=== PATIENT | female | born 1965 | race American Indian/Alaskan Native ===

== ENCOUNTER 2017-11-22 06:32 | Day surgery (SDC) | payer OTHER ==
[~2017-11-22 06:32] MED LIST: CLEOCIN 900 MG/50 mL 900 MG/50 ML BAG IV NR
[2017-11-22] MEDS ORDERED: ADRENALIN IV ONE ×2 (08:05→09:39)
[2017-11-22] MEDS ORDERED: NACL 0.9% 1000 ML 1,000 ML ONE (08:21)
--- NOTE | 2017-11-22 08:25 | Anesthesia Day of Surgery ---
Anesthesia Day of Surgery - Day of Surgery Patient Examined: Yes Patient H&P Reviewed: Yes Patient is NPO: Yes
--- NOTE | 2017-11-22 08:25 | Anesthesia Consultation ---
Anesthesia Consult and Med Hx Date of service: 11/22/17 - Airway Anesthetic Teeth Evaluation: Good ROM Head & Neck: Adequate Mental/Hyoid Distance: Adequate Mallampati Class: Class I Intubation Access Assessment: Good - Pulmonary Exam CTA: Yes - Cardiac Exam Cardiac Exam: RRR - Pre-Operative Health Status ASA Pre-Surgery Classification: ASA2 Proposed Anesthetic Plan: General Nerve Block: IS - Pulmonary Hx Smoking: No Hx Sleep Apnea: No (IVAN PRE SCREEN NEGATIVE) - Cardiovascular System Hx Hypertension: No - Central Nervous System Hx Back Pain: Yes - Other Systems Hx Cancer: No - Additional Comments Anesthesia Medical History Comments: arthritis. Informed consent obtained
[2017-11-22] MEDS ORDERED: XYLOCAINE 1% 20 mL ONE (08:27)
[2017-11-22] MEDS ORDERED: MARCAINE 0.5% 30 ML INFILTRATI ONE (08:27)
[2017-11-22] MEDS ORDERED: DECADRON ONE (08:27)
[2017-11-22] MEDS ORDERED: NACL 0.9% 1000 ML 1,000 ML IV SCH (09:00)
[2017-11-22] MEDS ORDERED: PEPCID IV NR (09:00)
[2017-11-22] MEDS ORDERED: PERCOCET 5/325 PO PRN (09:00)
[2017-11-22] MEDS ORDERED: SUBLIMAZE IV NR (09:00)
[2017-11-22] MEDS ORDERED: VERSED IV NR (09:00)
[2017-11-22] MEDS ORDERED: DILAUDID IV PRN (09:00)
[2017-11-22] MEDS ORDERED: ZEMURON IV ONE (09:30)
[2017-11-22] MEDS ORDERED: XYLOCAINE MPF 2% ONE (09:30)
[2017-11-22] MEDS ORDERED: DIPRIVAN 10 MG/ML IV ONE (09:30)
[2017-11-22] MEDS ORDERED: SUBLIMAZE ONE (09:33)
[2017-11-22] MEDS ORDERED: NACL 0.9% IR ONE ×2 (09:39)
[2017-11-22] MEDS ORDERED: NEO SYNEPHRINE/NS Syringe(OR USE) IV ONE (10:29)
[2017-11-22] MEDS ORDERED: ZOFRAN ONE (10:31)
--- NOTE | 2017-11-22 11:16 | Short Stay Summary ---
Short Stay Documentation Date of service: 11/22/17 - History H&P: obtained from office - Allergies and Medications Current Medications: Allergies amoxicillin Allergy (Verified 11/09/17 10:58) Rash clarithromycin [From [facility]] Allergy (Verified 11/22/17 09:01) Rash doxycycline Allergy (Verified 11/22/17 09:01) Rash lansoprazole [From [facility]] Allergy (Verified 11/22/17 09:01) Rash latex Allergy (Verified 11/09/17 10:58) Rash Home Medications Medication Instructions Recorded Confirmed Last Taken Type Ibuprofen [Motrin] 800 mg PO Q8HR PRN 11/09/17 11/09/17 Unknown History Multivit-Min/FA/Lycopen/Lutein 1 each PO DAILY 11/09/17 11/09/17 Unknown History [Centrum Silver Tablet] Active Medications Famotidine (Pepcid) 20 mg IV PREOP NR Stop: 11/22/17 21:00 Last Admin: 11/22/17 08:48 Dose: 20 mg Fentanyl (Sublimaze) 100 mcg IV ONCE NR Stop: 11/22/17 21:00 Last Admin: 11/22/17 08:30 Dose: 50 mcg Hydromorphone HCl (Dilaudid) 0.5 mg IV Q10MIN PRN PRN Reason: Pain , Severe (7-10) Stop: 11/22/17 20:00 Clindamycin HCl (Cleocin 900 Mg/50 Ml) 900 mg in 50 mls @ 100 mls/hr IV PREOP NR PRN Reason: Protocol Stop: 11/22/17 21:00 Sodium Chloride (Nacl 0.9% 1000 Ml) 1,000 mls @ 100 mls/hr IV DIRECT BILL Last Admin: 11/22/17 08:20 Dose: 100 mls/hr Midazolam HCl (Versed) 2 mg IV PREOP NR Stop: 11/22/17 23:59 Last Admin: 11/22/17 08:30 Dose: 1 mg Oxycodone/Acetaminophen (Percocet 5/325) 1 tab PO ONCE PRN PRN Reason: Pain, Moderate (4-6) - Brief post op/procedure progress note Date of procedure: 11/22/17 Pre-op diagnosis: persistent right shoulder pain, large type II causing impingement Post-op diagnosis: other (persistent right shoulder pain, type II acromion causing impingement, subacromial bursitis, severe adhesions of the subascapularis, prior biceps tenotomy,extensive subacromial bursitis) Procedure: right shoulder arthroscopy, subacromial decompression, debriedment of extensive subacromial bursitis, debriedment of extensive intraarticular adhesions Anesthesia: GETA Findings: as above Surgeon: SOURAV NELSON Steel Plate Printer: ZULEYMA ALEXANDRE III Estimated blood loss: minimal Pathology: none Condition: stable - Hospital course Hospital course: no perioperative complications - Disposition Condition at discharge: Good Disposition: DC-01 TO HOME OR SELFCARE Short Stay Discharge Plan Follow up with: JOAQUIN SHELTON MD [Primary Care Provider] - 7 Days
[2017-11-22] MEDS ORDERED: ROBINUL ONE (11:26)
[2017-11-22] MEDS ORDERED: NEOSTIGMINE ONE (11:26)
[2017-11-22] MEDS ORDERED: DEMEROL ONE (11:46)
[2017-11-22] MEDS ORDERED: DEMEROL IV PRN (11:52)
--- NOTE | 2017-11-22 12:22 | Operative Report ---
PREOPERATIVE DIAGNOSES: Persistent right shoulder pain, acromioclavicular joint arthritis, partial thickness rotator cuff tear. POSTOPERATIVE DIAGNOSES: Persistent right shoulder pain, type 2 acromion causing severe impingement upon the rotator cuff, prior distal clavicle excision, prior biceps tenotomy, severe adhesions located diffusely throughout the intraarticular aspect of the glenohumeral joint, particularly anteriorly surrounding the subscapularis tendon, extensive subacromial bursitis, partial thickness bursal sided rotator cuff tear due to the impingement caused by the undersurface of the acromion. OPERATIVE PROCEDURE: Right shoulder arthroscopy, subacromial decompression, debridement of extensive subacromial bursitis, lysis of multiple adhesions located diffusely throughout the anterior aspect of the glenohumeral joint, specifically surrounding the subscapularis tendon, debridement of partial thickness bursal sided rotator cuff tear. SURGEON: Gal Doyle M.D. RADAR OPERATOR: Shar Weller III, M.D. ANESTHESIA: General plus an interscalene block to the operative right upper extremity. DEEP VENOUS THROMBOSIS PROPHYLAXIS: Open toe thigh high compression stockings and SCD pumps to bilateral lower extremities. PREOPERATIVE ANTIBIOTICS: Clindamycin 900 mg IV within 1 hour of skin incision. OPERATIVE COMPLICATIONS: None. OPERATIVE HISTORY AND PHYSICAL: This is a 51-year-old female who has had persistent progressively worsening right shoulder pain. The pain limits her day-to-day activities and has failed to improve despite extensive nonoperative treatment. The patient has had 2 prior right shoulder surgeries. MRI scan was performed, which was positive for persistent inferior spur of the acromion as well as partial thickness rotator cuff tear. The patient's MRI findings and diagnosis were discussed at length. After making sure the patient understood that diagnosis and all of her questions were answered, we then discussed treatment alternatives of surgical and nonsurgical including risks and benefits of both. After a long lengthy discussion, the patient opted to proceed with operative intervention. This will entail a right shoulder arthroscopy, subacromial decompression, distal clavicle excision, possible rotator cuff repair and surgery as indicated, the risk of which were discussed to include but not exclusive of infection, blood loss, nerve damage, loss of range of motion and persistent pain. Again, the patient understood, all her questions were answered. She wished to proceed with operative intervention. OPERATIVE PROCEDURE: The patient was seen in the preoperative holding room area, at which point informed consent was reviewed and appropriate right upper extremity was identified and then marked. The patient was then brought back to the operating room and placed supine on a standard operative table with the beach chair positioner already in place. General anesthesia was then administered and an endotracheal tube was inserted. After confirmation of adequate general anesthesia and checking appropriate placement of the endotracheal tube, we then made sure that all bony prominences were well padded. We made sure there were no wrinkles in the compression stockings on bilateral lower extremities, and SCD pumps were applied to bilateral lower extremities. The patient was then sat up in the beach chair position using the beach chair positioner, which was already in place and hip was secured in nice neutral position. The well left arm was secured in neutral position at the patient's side with the aid of the well arm yanez. The right upper extremity was then examined under anesthesia. The patient was seen to have full range of motion with no gross evidence of instability except for slight lack of external rotation compared to the opposite extremity. I found there was no evidence of instability. Following examination under anesthesia, the right upper extremity was then prepped and draped in the usual sterile fashion. After prepping and draping, a timeout was called and appropriate right upper extremity was identified which again had been marked in preop holding area. We began the procedure by first making standard posterior portal with #15 blade. Once the portal was established, a cannula with a blunt trocar was inserted in the intra-articular aspect of the glenohumeral joint. This went without difficulty or damage to articular cartilage. Once in place, arthroscopic camera immediately placed in the anterior aspect of the shoulder joint, we established anterior portal by first inserting 18 inch spinal needle under direct arthroscopic visualization. Once confirmed to be superior to the subscapularis tendon, a 15 blade was then used to establish the anterior portal. Once the portal was established, a cannula with a blunt trocar was inserted into the intra-articular aspect of the glenohumeral joint. This went without difficulty or damage to articular cartilage. Once in place, the arthroscopic probe was inserted and the anterior portal, began our diagnostic arthroscopy on the anterior aspect of the shoulder joint. The patient was seen to have severe adhesions located diffusely throughout the anterior aspect of the glenohumeral joint. These adhesions almost completely encased the subscapularis tendon and caused it to be markedly superiorly oriented in its normal orientation. These adhesions were meticulously taken down and hemostasis was achieved with the Arthrocare ablation wand. The patient had a prior biceps tenotomy. There was a normal anterior, superior, posterior labrum, which when probed was stable. There was mild grade 1 articular cartilage loss of the glenohumeral joint. There was a normal bare area without any Hill-Sachs lesions. There were no loose bodies in the axillary recess. The articular side of the rotator cuff showed it to be intact and stable when probed. Arthroscopic pump was turned off to make sure there was good hemostasis. Once this was confirmed, the extraneous fluid was suctioned from the glenohumeral joint. Following this, all arthroscopic instrumentation was removed from glenohumeral joint and placed in the subacromial space. Once in the subacromial space, we saw there was severe extensive subacromial bursitis. A third incision made in the lateral aspect of the shoulder and left distal clavicle away from axillary nerve. Once this incision was made, the blunt trocar was inserted via the portal site. We debrided the extensive subacromial bursitis using the arthroscope shaver and hemostasis was achieved with the Arthrocare ablation wand. Once completed, the arm was placed through range of motion. We saw there is severe impingement of the rotator cuff on the undersurface of the acromion. The soft tissue was removed from the surface acromion using Arthrocare ablation wand and using the 4.0 hooded barrel bur, we carried out subacromial decompression in standard fashion from inferior and superior, posterior and anterior to make sure not to leave any residual anterior hook. Once completed, the arm was again placed through full range of motion, so there was no further impingement of the rotator cuff on undersurface of the acromion or the distal clavicle. The patient had a prior distal clavicle excision to a depth of well over 8 mm. Inspection of the bursal side of the rotator cuff showed it to be a partial thickness tear directly related to the area of impingement from the undersurface of the acromion. This tear was gently debrided using 4.0 meniscal shaver. Hemostasis again was achieved with the Arthrocare ablation wand. Once completed, the arthroscopic pump turned off to make sure there was good hemostasis. Once this was confirmed, trace fluid was suctioned from the subacromial space using arthroscopic cannula. Following this, all the arthroscopic instrumentation was removed. The 3 portal sites were closed with 3-0 nylon in simple fashion. Adaptic, 4 x 4s, ABD, paper tape, small abduction sling was applied. The patient was then sat down from beach chair into the supine position, and was awakened from general anesthesia without complications and taken to recovery room in stable condition, and standard postoperative orders were written. JOB# [id number] MARINA/MARLENE
[2017-11-22 12:49] VITALS: BP 128/79
--- NOTE | 2017-11-22 14:10 | Post Anesthesia Evaluation ---
- Post Anesthesia Evaluation Patient Participated: Yes Airway Patent: Yes Stable Respiratory Function: Yes Nausea/Vomiting: No Temp > 96.8F: Yes Pain Manageable: Yes Adequeate Hydration: Yes Anesthesia Complications: No Other Comments: IS block for analgesia
== END 2017-11-22 13:36 | disposition home or self-care (01) ==
LOC: OR 06:32
PROVIDERS: ATTEND Orthopaedic Surgery
DX: S46.011A Strain of muscle(s) and tendon(s) of the rotator cuff of right shoulder, initial encounter (principal); M75.41 Impingement syndrome of right shoulder; M19.011 Primary osteoarthritis, right shoulder; M75.01 Adhesive capsulitis of right shoulder; Z88.1 Allergy status to other antibiotic agents; Z91.040 Latex allergy status; X58.XXXA Exposure to other specified factors, initial encounter; Y93.89 Activity, other specified; Y92.89 Other specified places as the place of occurrence of the external cause; Y99.8 Other external cause status
CPT/HCPCS: A4217; J0171; J1100; J2175; J2250; J2370; J2405; J2704; J2710; J3010; J7030; L1830

== ENCOUNTER 2018-05-23 06:06 | Day surgery (SDC) | payer OTHER ==
[2018-05-20 09:47] LABS: Basophils % (Auto) 0.6 % (0.0-1.8); Eosinophils # (Auto) 0.1 K/mm3 (0.0-0.4); Eosinophils % (Auto) 1.7 % (0.0-4.3); Hemoglobin 13.3 gm/dl (10.1-14.3); Monocytes # (Auto) 0.3 K/mm3 (0.0-0.8); Monocytes % (Auto) 8.1 % (0.0-7.3)
--- NOTE | 2018-05-20 10:07 | Anesthesia Consultation ---
Anesthesia Consult and Med Hx Date of service: 05/20/18 - Airway Anesthetic Teeth Evaluation: Good ROM Head & Neck: Adequate Mental/Hyoid Distance: Adequate Mallampati Class: Class II Intubation Access Assessment: Probably Good - Pre-Operative Health Status ASA Pre-Surgery Classification: ASA2 Proposed Anesthetic Plan: General Nerve Block: IS - Pulmonary Hx Smoking: No Hx Sleep Apnea: No (IVAN PRE SCREEN NEGATIVE) - Cardiovascular System Hx Hypertension: No - Central Nervous System Hx Back Pain: Yes (left shoulder pain) - Other Systems Hx Cancer: No
[2018-05-20 10:12] LABS: Hematocrit 38.9 % (30.3-42.9); Lymphocytes # (Auto) 1.8 K/mm3 (1.2-5.4); Lymphocytes % (Auto) 42.1 % (13.4-35.0); Mean Corpuscular HGB Conc 34 % (30-34); Mean Corpuscular Hemoglobin 30 pg (28-32); Mean Corpuscular Volume 88 fl (79-97); Platelet Count 108 K/mm3 (140-440); Red Cell Distribution Width 13.6 % (13.2-15.2)
[2018-05-20 10:28] LABS: Alanine Aminotransferase 13 units/L (7-56); Albumin 3.9 g/dL (3.9-5); BUN/Creatinine Ratio 15; Blood Urea Nitrogen 12 mg/dL (7-17); Hemolysis Index 23
[~2018-05-23 06:06] MED LIST changes: -CLEOCIN 900 MG/50 mL 900 MG/50 ML BAG IV NR; +CLEOCIN 900 MG/50 mL 900 MG/50 ML BAG IV SCH
[2018-05-23] MEDS ORDERED: NACL BACTERIOSTATIC INFILTRATI ONE (06:32)
[2018-05-23] MEDS ORDERED: ADRENALIN IV ONE ×2 (06:37→08:35)
[2018-05-23] MEDS ORDERED: MARCAINE 0.5% INFILTRATI NR (06:59)
[2018-05-23] MEDS ORDERED: LACTATED RINGERS 1,000 ML IV SCH (07:00)
[2018-05-23] MEDS ORDERED: BENADRYL PO NR (07:00)
[2018-05-23] MEDS ORDERED: VERSED IV NR (07:00)
[2018-05-23] MEDS ORDERED: PEPCID IV NR (07:00)
[2018-05-23] MEDS ORDERED: DILAUDID ONE (07:10)
[2018-05-23] MEDS ORDERED: XYLOCAINE MPF 2% ONE (07:10)
[2018-05-23] MEDS ORDERED: DIPRIVAN 10 MG/ML IV ONE (07:10)
[2018-05-23] MEDS ORDERED: ZEMURON IV ONE (07:10)
--- NOTE | 2018-05-23 07:12 | Anesthesia Day of Surgery ---
Anesthesia Day of Surgery - Day of Surgery Patient Examined: Yes Patient H&P Reviewed: Yes Patient is NPO: Yes
[2018-05-23] MEDS ORDERED: XYLOCAINE 1% MPF 5 mL INFILTRATI NR (07:13)
[2018-05-23] MEDS ORDERED: ZOFRAN IV PRN (07:20)
[2018-05-23] MEDS ORDERED: DILAUDID IV PRN (07:20)
[2018-05-23] MEDS ORDERED: BLOXIVERZ ONE (07:30)
[2018-05-23] MEDS ORDERED: ROBINUL ONE (07:30)
[2018-05-23] MEDS ORDERED: DECADRON ONE (07:30)
[2018-05-23] MEDS ORDERED: ZOFRAN ONE (07:30)
[2018-05-23] MEDS ORDERED: NEURONTIN PO NR (08:00)
[2018-05-23] MEDS ORDERED: NACL 0.9% IR ONE ×2 (08:35)
--- NOTE | 2018-05-23 09:54 | Short Stay Summary ---
Short Stay Documentation Date of service: 05/23/18 - History H&P: obtained from office - Allergies and Medications Current Medications: Allergies amoxicillin Allergy (Verified 11/09/17 10:58) Rash clarithromycin [From [facility]] Allergy (Verified 11/22/17 09:01) Rash doxycycline Allergy (Verified 11/22/17 09:01) Rash lansoprazole [From [facility]] Allergy (Verified 11/22/17 09:01) Rash latex Allergy (Verified 11/09/17 10:58) Rash Home Medications Medication Instructions Recorded Confirmed Last Taken Type No Known Home Medications [No 05/23/18 05/23/18 Unknown History Reported Home Medications] Active Medications Celecoxib (Celebrex) 200 mg PO PREOP NR Stop: 05/23/18 13:00 Diphenhydramine HCl (Benadryl) 50 mg PO ONCE NR Stop: 05/23/18 23:59 Last Admin: 05/23/18 07:00 Dose: 50 mg Famotidine (Pepcid) 20 mg IV PREOP NR Stop: 05/23/18 23:59 Last Admin: 05/23/18 07:05 Dose: 20 mg Gabapentin (Neurontin) 300 mg PO PREOP NR Stop: 05/23/18 12:00 Hydromorphone HCl (Dilaudid) 0.5 mg IV Q10MIN PRN PRN Reason: Pain , Severe (7-10) Stop: 05/23/18 12:00 Clindamycin HCl (Cleocin 900 Mg/50 Ml) 900 mg in 50 mls @ 100 mls/hr IV PREOP BILL; Protocol Stop: 05/23/18 23:59 Lactated Ringer's (Lactated Ringers) 1,000 mls @ 100 mls/hr IV DIRECT BILL Last Admin: 05/23/18 07:00 Dose: 100 mls/hr Lidocaine (Xylocaine 1% Mpf 5 Ml) 5 ml INFILTRATI ONCE NR Stop: 05/23/18 12:00 Midazolam HCl (Versed) 2 mg IV PREOP NR Stop: 05/23/18 23:59 Last Admin: 05/23/18 07:15 Dose: 2 mg Ondansetron HCl (Zofran) 4 mg IV ONCE PRN PRN Reason: Nausea And Vomiting Stop: 05/23/18 12:00 - Brief post op/procedure progress note Date of procedure: 05/23/18 Pre-op diagnosis: left shoulder pain, AC joint arthritis, partial rotator cuff tear Post-op diagnosis: other (persistent left shoulder pain, acromioclavicular joint arthritis, partial rotator cuff tear, extensive subacromial bursitis, degenerative wear of the anterior labrum) Procedure: left shoulder arthroscopy subacromial decompression, distal clavicle excision, debridement of extensive subacromial bursitis, debridement of partial rotator cuff tear, debridement of degenerative wear of the anterior labrum Anesthesia: GETA Findings: as above Surgeon: SOURAV NELSON Estimated blood loss: minimal Pathology: none Condition: stable - Hospital course Hospital course: no perioperative complications - Disposition Condition at discharge: Good Disposition: DC-01 TO HOME OR SELFCARE Short Stay Discharge Plan Follow up with: PRIMARY CARE, [Primary Care Provider] - 7 Days
--- NOTE | 2018-05-23 11:20 | Post Anesthesia Evaluation ---
- Post Anesthesia Evaluation Patient Participated: Yes Airway Patent: Yes Stable Respiratory Function: Yes Nausea/Vomiting: No Temp > 96.8F: Yes Pain Manageable: Yes Adequeate Hydration: Yes Anesthesia Complications: No Block Receding Appropriately: Yes (Postoperative block instructions discussed.) Patient on Ventilator: No
--- NOTE | 2018-05-23 11:35 | Operative Report ---
PREOPERATIVE DIAGNOSES: Persistent left shoulder pain, acromioclavicular joint arthritic changes with inferior spurs causing severe impingement upon the rotator cuff, partial thickness rotator cuff tear. POSTOPERATIVE DIAGNOSES: Persistent left shoulder pain, advanced acromioclavicular joint arthritic changes with inferior spurs causing severe impingement upon the rotator cuff, partial thickness bursal-sided rotator cuff tear involving the supraspinatus tendon accomplishing approximately 30% of the width of the tendon in a linear-type fashion, clearly from the inferior spur of the acromion, degenerative wear of the anterior labrum, extensive subacromial bursitis. OPERATIVE PROCEDURE: Left shoulder arthroscopy, subacromial decompression, distal clavicle excision, debridement of extensive subacromial bursitis, debridement of partial thickness rotator cuff tear, debridement of degenerative wear of the anterior labrum. SURGEON: Gal Doyle M.D. ITALIAN TEACHER: None. ANESTHESIA: General plus interscalene block to the operative left upper extremity. PREOPERATIVE ANTIBIOTICS: Clindamycin 900 mg IV within 1 hour of skin incision. DVT PROPHYLAXIS: Open toe, thigh compression stockings and SCD pumps to bilateral lower extremities. OPERATIVE COMPLICATIONS: None. OPERATIVE HISTORY AND PHYSICAL: This is a 52-year-old female who has had persistent progressive worsening left shoulder pain with a loss of range of motion, which was failed to improve despite extensive nonoperative treatment. The patient has marked limitation of her daily activities. An MRI scan was performed which was positive for rotator cuff stenosis with a partial thickness tear. The patient's MRI findings and diagnosis were discussed at length. After making sure the patient understood that diagnosis, all questions answered, we then discussed treatment alternatives of surgical and nonsurgical including risks and benefits of both. After a long lengthy discussion, the patient opted to proceed with operative intervention. At this point, a left shoulder arthroscopy, subacromial decompression, distal clavicle excision, possible rotator cuff repair and surgery is indicated. The risks of which were discussed to include but not exclusive of infection, blood loss, nerve damage, loss of range of motion and persistent pain. Again, the patient understood, all of her questions answered. She wished to proceed with operative intervention for operative procedure. DESCRIPTION OF PROCEDURE: The patient was seen in the preoperative holding room area, at which point informed consent was reviewed and the appropriate left upper extremity was identified and then marked. The patient was then evaluated by Anesthesia and interscalene block was performed. After confirmation of adequate analgesia of the left upper extremity, the patient was then brought back to the operating room and placed supine on standard operating room table with the beach chair position already in place. At this juncture, general anesthesia was administered and an endotracheal tube was inserted. After confirmation of appropriate general anesthesia and checking appropriate placement of the endotracheal tube, we then made sure that there were no wrinkles in the compression stockings on bilateral lower extremities and SCD pumps were applied to bilateral lower extremities. A pillow was placed beneath the posterior aspect of bilateral thighs, placed in slight flexion at the hips and knees, making sure the popliteal fossa was free and clear and the heels were padded with Eggcrate. We made sure that all bony prominences were well padded. The patient was then sat in a beach chair position as the beachchair position was already in place and her hip was secured in nice neutral position. The well right arm was secured in a neutral position of the patient's side with the aid of the well arm yanez. Left upper extremity was then examined under anesthesia. The patient was seen to have full range of motion with forward flexion to 180, abduction 180, external rotation 60 degrees, internal rotation 60 degrees. Following examination under anesthesia, the left upper extremity was then prepped and draped in the usual sterile fashion. After prepping and draping, a timeout was called. Appropriate left upper extremity was identified, which again had been marked in the preoperative holding area. We began our procedure by first making a standard posterior portal with #15 blade. Once the portal was established, the cannula with the blunt trocar was inserted into the intra-articular aspect of the glenohumeral joint. This went without difficulty or damage to articular cartilage. Once in place, the arthroscopic camera was placed in the anterior space and established anterior portal by first inserting 18-gauge spinal needle between the subscapular and bicep tendons under direct arthroscopic visualization. Once confirmed to be in appropriate position, a 15 blade was then used to establish an anterior portal. Again under direct arthroscopic visualization, once the portal was established, the cannula with a blunt trocar was inserted into the intra-articular aspect of the glenohumeral joint. This went without difficulty or damage to articular cartilage. We began our diagnostic arthroscopy in the anterior aspect of the shoulder joint with the patient having normal subscapularis tendon and normal middle glenohumeral ligament. There was some mild degenerative wear of the anterior labrum; however, no instability when probed. The superior labrum and posterior labrum was seen to be intact and stable when probed. The biceps tendon was seen to be intact ____ shoulder in its normal relation. There was some mild grade 1 articular cartilage wear of the glenohumeral joint. There was a normal bare area without a Hill-Sachs lesion. There were no loose bodies in the axillary recess. The subscapularis tendon was intact and stable when probed. Degenerative wear of the anterior labrum was gently debrided using 4.0 meniscal shaver and hemostasis was achieved with Arthrocare ablation wand. The arthroscopic pump was turned off to make sure there was good hemostasis. Once this was confirmed, the extraneous fluid suctioned from the glenohumeral joint using the arthroscopic cannula. It should be noted that there was a negative drive-through sign and there were no tears on the articular side of the rotator cuff. The arthroscopic camera was removed from the glenohumeral joint and then placed in subacromial space. Once in the subacromial space, there was extensive severe bursitis. A third incision was made in the lateral aspect of the shoulder in line with the distal clavicle, well away from axillary nerve and through this incision, we debrided the extensive subacromial bursitis using 4.0 meniscal shaver. Hemostasis was achieved with the Arthrocare ablation wand. Once completed, the arm was placed through range of motion. We thought there was severe impingement of the rotator cuff upon undersurface of the acromion. There was a linear partial thickness tear in cuff, approximately 30% of the supraspinatus tendon directly related to the inferior spur. The soft tissue was removed from the undersurface of the acromion using the Arthrocare ablation wand and then using the 4.0 hooded barrel bur, we carried a subacromial decompression in standard fashion, went from the inferior to superior, posterior to anterior to make sure not to leave any residual anterior hook. Once completed, I then turned our attention to the distal clavicle, which was also seen to be arthritic and contributing to impingement and using the 4.0 hooded barrel bur, we carried out a distal clavicle incision to a depth of approximately 6-8 mm. Once completed, the arthroscopic pump was turned off to make sure there was good hemostasis. Once this was confirmed, the arthroscopic pump was then turned back on. The arm was placed through a full range of motion under direct arthroscopic visualization. It was felt that there was no impingement of the rotator cuff upon undersurface of the acromion or the distal clavicle. We turned our attention to the bursal side of the rotator cuff where there was a partial thickness tear of the supraspinatus tendon. This was gently debrided using a 4.0 meniscal shaver down to a nice smooth healthy remaining tissue. There was no full-thickness tear present. The infraspinatus tendon was seen to be intact and stable when probed. There was some mild thickening of the coracoacromial ligament contributing to the impingement. Therefore, a portion of this was taken down, making careful attention to cauterize the acromial branch of the thoracoacromial artery. Once completed, the arm was again placed through full range of motion. We saw there was no further impingement of the rotator cuff upon undersurface of the acromion or the distal clavicle. Following this, the fluid was suctioned from the subacromial space using arthroscopic cannula. Following this, all the arthroscopic instrumentation was removed. The 3 portal sites were closed with 3-0 nylon in a simple fashion. Adaptic, 4 x 4s, ABD, Medipore dressing, small abduction sling, a Donjoy cryo/blanket was applied. The patient was then sat down from the beach chair and in the supine position, was awakened from general anesthesia without complications, taken to recovery room in stable condition and standard postoperative orders were written. JOB# [id number] MARINA/MARLENE
[2018-05-23 12:13] VITALS: BP 138/94
== END 2018-05-23 12:10 | disposition home or self-care (01) ==
LOC: OR 06:06
PROVIDERS: ATTEND Orthopaedic Surgery
DX: M75.42 Impingement syndrome of left shoulder (principal); M75.52 Bursitis of left shoulder; M75.112 Incomplete rotator cuff tear or rupture of left shoulder, not specified as traumatic; M19.90 Unspecified osteoarthritis, unspecified site; Z88.8 Allergy status to other drugs, medicaments and biological substances; Z88.1 Allergy status to other antibiotic agents; Z91.040 Latex allergy status; Z90.710 Acquired absence of both cervix and uterus
CPT/HCPCS: 29823; 29824; 29826; 29827; 36415; 80053; 85025; A4217; J0171; J1100; J1170; J2250; J2405; J2704; J2710; J7120